=== PATIENT | female | born 1985 | race African-American/Black ===

== ENCOUNTER 2023-10-23 11:35 | Inpatient (IN) | payer OTHER ==
[~2023-10-23] VITALS: Ht 154.9 cm; Wt 68.0 kg
[2023-10-23 11:50] VITALS: BP 94/68; PULSE 97; RESP 18; TEMP 98.2; O2SAT 100
[2023-10-23 12:29] LABS: BASOPHILS # (AUTO) 0.2 K/uL (0.00-0.22); BASOPHILS % (AUTO) 1.7 % (0.0-2.0); EOSINOPHILS % (AUTO) 0.4 % (0.0-4.0); HEMATOCRIT 31.5 % (36-48); HEMOGLOBIN 10.7 g/dL (12.0-16.0); LYMPHOCYTES # (AUTO) 1.9 K/uL (2.5-16.5); LYMPHOCYTES % (AUTO) 20.3 % (20.5-51.1); MEAN CORPUSCULAR HEMOGLOBIN 30 pg (27-31); MEAN CORPUSCULAR HGB CONC 34 g/dL (33-37); MEAN CORPUSCULAR VOLUME 88.9 fL (80-94); MONOCYTES # (AUTO) 0.5 K/uL (0.8-1.0); MONOCYTES % (AUTO) 5.2 % (1.7-9.3); NEUTROPHILS # (AUTO) 6.7 K/uL (1.8-7.7); NEUTROPHILS % (AUTO) 72.4 % (42.2-75.2); PLATELET COUNT (AUTO) 216 K/uL (140-450); RED BLOOD CELL COUNT(AUTO) 3.55 MIL/uL (4.20-5.40); RED CELL DISTRIBUTION WIDTH 13.2 % (11.6-13.7); WHITE BLOOD COUNT (AUTO) 9.3 K/uL (4.8-10.8)
[2023-10-23 12:44] LABS: ANION GAP 11.3 (8-16); CALCIUM 8.7 mg/dL (8.5-10.1); CARBON DIOXIDE 24.6 mmol/L (21-32); CREATININE 0.5 mg/dL (0.6-1.3); POTASSIUM 3.9 mmol/L (3.5-5.1)
[2023-10-23 12:56] LABS: ALBUMIN 3.3 g/dL (3.4-5.0); TOTAL BILIRUBIN 0.3 mg/dL (0.0-1.0); TOTAL PROTEIN, SERUM 7.2 g/dL (6.4-8.2)
[2023-10-23] MEDS ORDERED: KCL 20 MEQ IN 100 mL PREMIX 200 ML IV PRN (16:05)
[2023-10-23] MEDS ORDERED: ACETAMINOPHEN 325 MG TAB PO PRN (16:05)
[2023-10-23] MEDS ORDERED: MORPHINE SULFATE 2 MG/ML SYR IVP PRN (16:05)
[2023-10-23] MEDS ORDERED: MAGNESIUM OXIDE 400 MG TAB PO PRN (16:05)
[2023-10-23] MEDS ORDERED: MAG SULF 2000 MG/WATER PREMIX 50 ML IV PRN (16:05)
[2023-10-23] MEDS ORDERED: HYDROcodone/APAP 5/325 MG 1 TAB TAB PO PRN (16:05)
[2023-10-23] MEDS ORDERED: POTASSIUM CHLORIDE 10 MEQ TABER PO PRN (16:05)
[2023-10-23 19:20] VITALS: BP 119/73; PULSE 99; RESP 14; TEMP 98
[2023-10-23 19:30] VITALS: BP 119/73; PULSE 99; RESP 14; TEMP 98; O2SAT 99
== END 2023-10-23 19:30 | disposition home or self-care (01) | DRG 566 ==
LOC: MED 11:35 → MMU 16:07
PROVIDERS: ADMIT Internal Medicine; ATTEND Internal Medicine
DX: O02.0 Blighted ovum and nonhydatidiform mole (principal); D62 Acute posthemorrhagic anemia; O08.1 Delayed or excessive hemorrhage following ectopic and molar pregnancy; O99.011 Anemia complicating pregnancy, first trimester; Z3A.01 Less than 8 weeks gestation of pregnancy
CPT/HCPCS: 36415; 76817; 80053; 83690; 84702; 85025; 86901; 99291; Q0092